=== PATIENT | female | born 1990 | race Native Hawaiian/Other Pacific Islander ===

== ENCOUNTER → 2020-02-15 07:39 | Outpatient (CLI) | payer OTHER, MEDICAID, SELFPAY ==
--- NOTE | 2020-02-15 | DI.MG.S_ITS ---
BILATERAL DIGITAL DIAGNOSTIC MAMMOGRAM 3D/2D: 02/15/2020 CLINICAL: Baseline exam. Breast lumps. Baseline mammogram. Comparison is made to exams dated: 02/15/2020 [facility], [place] and 02/15/2020 [facility]. The tissue of both breasts is extremely dense, which lowers the sensitivity of mammography. No significant masses, calcifications, or other findings are seen in either breast. No mammographic correlate to the 1.1 cm mass in the right breast at 9:00 which was seen sonographically at the reported palpable site. IMPRESSION: PROBABLY BENIGN No significant mammographic finding. Exam findings were reviewed with the patient by Dr. Bishop over the phone. Patient has a family history of early onset breast cancer. She will talk to her family members to gather more information. Genetic consultation maybe indicated. Discussion of ultrasound guided biopsy was held. Joint decision making to follow this small circumscribed mass was concluded. A follow-up ultrasound of the right breast in 6 months is recommended to demonstrate stability of the 1.1 cm mass at 9:00 5 cm from the nipple. This exam was interpreted at Station ID: [id number]. NOTE: For mammograms, a report in lay terms will be sent to the patient. Approximately 15% of breast malignancies will not be visualized mammographically. In the management of a palpable breast mass, a negative mammogram must not discourage biopsy of a clinically suspicious lesion. Electronically Signed By: Chris Bishop M.D. [facility] [place]/:02/15/2020 09:41:38 letter sent: Followup Recommended ACR BI-RADS Category 3: Probably benign [id number]
--- NOTE | 2020-02-15 | DI.US.S_ITS ---
LIMITED ULTRASOUND OF RIGHT BREAST AND AXILLA: 02/15/2020 CLINICAL: Palpable right breast lump. No prior exams were available for comparison. Color flow and real-time ultrasound of the right breast 9 o'clock, and axilla regions were performed. Martinez scale images of the real-time examination were reviewed. There is a 1.1 cm x 1 cm x 0.5 cm oval mass with a circumscribed margin in the right breast at 9 o'clock middle depth 5 cm from the nipple. This oval mass is hypoechoic with a well-defined boundary. This correlates as palpated by clinician. Color flow imaging demonstrates that there is no increase in vascularity. No significant abnormalities were seen sonographically in the right axilla. IMPRESSION: INCOMPLETE: NEEDS ADDITIONAL IMAGING EVALUATION The 1.1 cm oval mass in the lateral right breast most likely is a fibroadenoma and is indeterminate. A diagnostic mammogram is recommended and will immediately follow given the patients family history of early onset breast cancer. This exam was interpreted at Station ID: [id number]. Electronically Signed By: Chris Bishop M.D. [facility]/:02/15/2020 09:33:06 Ultrasound BI-RADS: 0 Indeterminate
--- NOTE | 2020-02-15 | DI.US.S_ITS ---
LIMITED ULTRASOUND OF LEFT BREAST: 02/15/2020 CLINICAL: Palpable left breast lump. No prior exams were available for comparison. Real-time ultrasound of the left breast 2 o'clock, 5 o'clock, and 8 o'clock regions was performed. Martinez scale images of the real-time examination were reviewed. No significant abnormalities were seen sonographically in the left breast in the regions of palpable abnormalities and focal pain at 2:00. IMPRESSION: INCOMPLETE: NEEDS ADDITIONAL IMAGING EVALUATION No sonographic evidence of malignancy. Diagnostic mammogram is recommended in this young woman with family history of early onset breast cancer. This exam was interpreted at Station ID: [id number]. Electronically Signed By: Chris Bishop M.D. [facility]/:02/15/2020 09:00:46 Ultrasound BI-RADS: 0 Indeterminate
== END ==
PROVIDERS: PCP Physician Assistant Medical; Referring Provider Physician Assistant Medical; Visit Provider Physician Assistant Medical
DX: R92.2 Inconclusive mammogram (principal); N63.15 Unspecified lump in the right breast, overlapping quadrants; N64.4 Mastodynia; Z80.3 Family history of malignant neoplasm of breast
CPT/HCPCS: 76642; 77066; G0279

== ENCOUNTER 2021-06-13 13:06 | Emergency (ER) | payer OTHER, MEDICAID, SELFPAY ==
[2021-06-13 13:11] VITALS: BP 99/69; PULSE 67; RESP 16; TEMP 36.6; O2SAT 98; BMI 29.2
[2021-06-13 13:42] LABS: COVID19 -Nasal RAPID Negative (Negative)
--- NOTE | 2021-06-13 14:41 | ED_ITS ---
HPI - Fever General Chief Complaint: Fever Stated Complaint: wants covid test Time Seen by Provider: 06/13/21 13:11 Source: patient Mode of arrival: Ambulatory Limitations: no limitations History of Present Illness HPI Narrative: 30-year-old female nonsmoker with noncontributory medical history was sent by her workplace as she was exposed to a person who tested positive for COVID-19 7 days ago. She needs a test for work. She has a mild headache but denies any runny nose or sore throat. She has had no fever or chills. She denies any chest pain, cough or shortness of breath. She has had no nausea, vomiting or diarrhea. She states her headache is been very mild and gradual in onset. She denies any neurologic symptoms such as numbness, tingling or weakness. She denies any neck pain. Related Data Allergies Allergy/AdvReac Type Severity Reaction Status Date / Time No Known Drug Allergies Allergy Verified 06/13/21 13:11 Review of Systems Review of Systems Narrative: GENERAL: See HPI HEENT: Denies sinus pain, ear pain, sore throat, difficulty swallowing, dizziness. RESPIRATORY: Denies dyspnea, cough, wheezing, hemoptysis, sputum. CARDIOVASCULAR: Denies chest pain, palpitations, orthopnea, edema, GASTROINTESTINAL: Denies nausea, vomiting, abdominal pain, diarrhea, constipation, melena. : Denies dysuria, frequency, incontinence, hematuria, urinary retention. MUSCULOSKELETAL: denies weakness, joint pain, or bony pain SKIN: Denies rash, skin lesions, or other NEUROLOGIC: Admits to mild headache. Denies weakness,numbness, change in speech, confusion, seizures, incoordination. PSYCHIATRIC: No concerning psychosocial issues. 12 point review of systems is negative except for those stated above Patient History Social History Smoking Status: Never smoker Smoking Status: Never smoker alcohol intake frequency: a few times a week Substance Use Type: does not use Exam Narrative Exam Narrative: GEN: AOx3 and in mild distress EYES: Pupils are equal, round, and reactive to light and accommodation. Extraoccular muscles are intact bilaterally. There is no subconjunctival hemorrhage or exudate. NECK: soft, trachea midline, nontender. No meningeal signs CHEST: Lungs are clear to auscultation bilaterally and free of wheezes, rales, or rhonchi. Heart rate is regular rhythm, there are no murmurs, clicks, rubs, or gallops. There is no chest wall tenderness. ABD: Abdomen is soft and nontender. There is no guarding or rebound. Bowel sounds are normal in all 4 quadrants. There is no mass or organomegaly. EXT: Full painless ROM of all extremities with no loss of sensation or strength. SKIN: Warm, pink, and dry. No erythema or rash Initial Vital Signs Initial Vital Signs: Vital Signs Temperature 97.9 F 06/13/21 13:11 Pulse Rate 67 06/13/21 13:11 Respiratory Rate 16 06/13/21 13:11 Blood Pressure 99/69 06/13/21 13:11 Pulse Oximetry 98 06/13/21 13:11 Course Orders Ordered: ED Orders 06/13/21 13:19 COVID19 -Nasal swab/Pre-Proc Stat Vital Signs Vital signs: Vital Signs - 8 hr 06/13/21 13:11 Temperature 97.9 F Pulse Rate 67 Respiratory Rate 16 Blood Pressure 99/69 Pulse Oximetry 98 MDM - Fever Lab Data Labs: Lab Results 06/13/21 Range/Units 13:19 SARS-CoV-2 (PCR) Negative (Negative) Discharge Plan Departure Patient Disposition: Home Clinical Impression: Feared complaint without diagnosis Instructions: COVID-19 Viral Test Activity Restrictions/Additional Instructions: *You have been diagnosed with [ COVID exposure, but thankfully your test for COVID-19 is NEGATIVE] *What to do: *Please continue to take your regular medications as directed. [ ] New medication prescriptions sent to your pharmacy: [ ] [ ] New medication written as a paper prescription [ ] No new medications given *Please follow up with your primary care provider in 2-3 days, call for an appointment. Let them know you were seen in the Emergency Department and that we ask that you be seen in follow up. We will electronically transmit a record of today's note if your PCP is in our system *If you do not have a primary care provider please contact the [facility] Resource line at [phone]. They will ask some questions about your medical history and help get you set up with a doctor in the community. *Return to Emergency Department if you should have any new, worsening or con cerning symptoms, such as [fever greater than 101 F, shaking chills, worsening pain, persistent vomiting or other bothersome symptoms]
== END 2021-06-13 15:23 | disposition home or self-care (01) ==
PROVIDERS: Emergency Provider Emergency Medicine
DX: R51.9 Headache, unspecified (principal); Z20.822 Contact with and (suspected) exposure to COVID-19
CPT/HCPCS: 87635; 99281; 99282; C9803

== ENCOUNTER 2021-07-09 16:44 | Emergency (ER) | payer OTHER, MEDICAID, SELFPAY ==
[2021-07-09 17:27] VITALS: PULSE 81; RESP 18; TEMP 36.6; O2SAT 100
[2021-07-09 17:41] LABS: COVID19 -Nasal RAPID Negative (Negative)
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
== END 2021-07-09 18:16 | disposition home or self-care (01) ==
PROVIDERS: Emergency Medicine; Emergency Provider Physician Assistant
DX: R51.9 Headache, unspecified (principal); Z20.822 Contact with and (suspected) exposure to COVID-19
CPT/HCPCS: 87635; 99281; 99282; C9803

== ENCOUNTER 2024-12-23 19:12 | Emergency (ER) | payer OTHER, MEDICAID, SELFPAY ==
[2024-12-23 19:38] VITALS: BP 113/75; PULSE 78; RESP 16; TEMP 36.9; O2SAT 99; BMI 28.3
--- NOTE | 2024-12-23 21:01 | PC.NURSE ---
Patient here in department for a headache that she awoke with this AM. No n/v. Patient has not taken any pain medication and does not like to take medication. Patient states that it feels like a concussion, but patient reports no injury to her head. Pain more with movement of head
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
== END 2024-12-23 21:46 | disposition home or self-care (01) ==
PROVIDERS: Emergency Provider Emergency Medicine; PCP Nurse Practitioner
DX: S16.1XXA Strain of muscle, fascia and tendon at neck level, initial encounter (principal); X50.9XXA Other and unspecified overexertion or strenuous movements or postures, initial encounter
CPT/HCPCS: 99281